=== PATIENT | female | born 1980 | race Caucasian/White ===

== ENCOUNTER 2016-08-23 10:38 | Day surgery (SDC) | payer BC ==
[~2016-08-23 10:38] MED LIST: Lactated Ringers 1,000 ML IV SCH; Sodium Chloride 0.9% 10 ML Syringe FLUSH PRN; Sodium Chloride 0.9% 2.5 ML Syringe FLUSH PRN
[2016-08-23] MEDS ORDERED: Lidocaine 2% 5 ML SDV ONE (11:06)
[2016-08-23] MEDS ORDERED: Propofol 200 MG/20 ML SDV ONE ×2 (11:07→11:57)
[2016-08-23] MEDS ORDERED: Midazolam 1 MG/ML 2 ML SDV ONE (11:07)
[2016-08-23] MEDS ORDERED: fentaNYL 100 MCG/2 ML SDV ONE (11:07)
--- NOTE | 2016-08-23 11:09 | PCM.PREANE ---
Preanesthetic Assessment - Anesthesia/Transfusion/Family Hx Anesthesia History: Prior Anesthesia Without Reaction Family History of Anesthesia Reaction: No Transfusion History: No Prior Transfusion(s) Intubation History: Unknown - Review of Systems General: No Symptoms Pulmonary: No Symptoms Cardiovascular: No Symptoms Gastrointestinal: Abdominal pain, Hematochezia Neurological: No Symptoms Other: Reports: None - Physical Assessment O2 Sat by Pulse Oximetry: 98 Respiratory Rate: 16 Vital Signs: Last Vital Signs Temp 36.1 C 08/23/16 10:44 Pulse 92 08/23/16 10:44 Resp 16 08/23/16 10:44 BP 110/85 08/23/16 10:44 Pulse Ox 98 08/23/16 10:44 Height: 1.64 m Weight: 64.864 kg ASA Class: 2 Mental Status: Alert & Oriented x3 Airway Class: Mallampati = 2 Dentition: Reports: Normal Dentition Thyro-Mental Finger Breadths: 3 Mouth Opening Finger Breadths: 2 ROM/Head Extension: Full Lungs: Clear to auscultation, Normal respiratory effort Cardiovascular: Regular Rate, Regular Rhythm - Allergies Allergies/Adverse Reactions: Allergies Allergy/AdvReac Type Severity Reaction Status Date / Time gluten Allergy Abdominal Verified 06/25/13 01:02 Pain frank Allergy Hives Uncoded 06/25/13 01:02 - Blood Blood Available: No - Anesthesia Plan Pre-Op Medication Ordered: None - Acknowledgements Anesthesia Type Planned: MAC Pt an Appropriate Candidate for the Planned Anesthesia: Yes Alternatives and Risks of Anesthesia Discussed w Pt/Guardian: Yes Pt/Guardian Understands and Agrees with Anesthesia Plan: Yes PreAnesthesia Questionnaire HEENT History: Reports: Allergic Rhinitis, Other (See Below) Other HEENT History: wears glasses/contacts Respiratory History: Reports: Asthma (h/o asthma as child) Gastrointestinal History: Reports: GERD, Other (See Below) Other Gastrointestinal History: hx gastric ulcer, h/o elevated LFT's, abdominal cramps, brbpr Genitourinary History: Reports: None 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: Musculoskeletal History: Reports: Arthritis (psoriatic) Neurological History: Reports: Other (See Below) (headaches) Psychiatric History: Reports: Anxiety, Depression Dermatologic History: Reports: Psoriasis (head) - Infectious Disease History Infectious Disease History: Reports: Chicken Pox - Past Surgical History Head Surgeries/Procedures: Reports: None HEENT Surgical History: Reports: Tonsillectomy GI Surgical History: Reports: EGD Female Surgical History: Reports: Breast Reduction - SUBSTANCE USE Smoking Status *Q: Never Smoker Second Hand Smoke Exposure: No Days Per Week of Alcohol Use: 1 Number of Drinks Per Day: 1 Total Drinks Per Week: 1 Recreational Drug Use History: No - HOME MEDS Home Medications: Home Meds Albuterol Sulfate [Proair Hfa] 1 - 2 puff INH ASDIRECTED PRN 08/21/16 [History] Omeprazole 40 mg PO DAILY 08/21/16 [History] Sucralfate 1 gm PO QID 08/21/16 [History] buPROPion HCl [Wellbutrin Xl] 150 mg PO DAILY 08/21/16 [History] - CURRENT (IN HOUSE) MEDS Current Meds: Current Medications Lactated Ringer's (Ringers, Lactated) 1,000 mls @ 125 mls/hr IV ASDIRECTED KELBY Last Admin: 08/23/16 10:48 Dose: 125 mls/hr Sodium Chloride (Saline Flush) 10 ml FLUSH ASDIRECTED PRN PRN Reason: Keep Vein Open Sodium Chloride (Saline Flush) 2.5 ml FLUSH ASDIRECTED PRN PRN Reason: Keep Vein Open
--- NOTE | 2016-08-23 12:23 | PCM.OPNOTE ---
- General Post-Op/Procedure Note Date of Surgery/Procedure: 08/23/16 Operative Procedure(s): EGD and colonoscopy Findings: Normal egd and colonoscopy Pre Op Diagnosis: BRBPR, epigastric pain Post-Op Diagnosis: same Anesthesia Technique: MAC Primary Surgeon: Ciara Barksdale Condition: Good
--- NOTE | 2016-08-23 12:28 | PCM.POSTAN ---
POST ANESTHESIA ASSESSMENT - MENTAL STATUS Mental Status: alert - RESPIRATORY Respiratory Status: respiratory rate WNL, airway patent, O2 saturation stable - CARDIOVASCULAR CV Status: pulse rate WNL, blood pressure stable - GASTROINTESTINAL GI Status: no symptoms - POST OP HYDRATION Hydration Status: adequate & stable - OBSERVATIONS Free Text/Narrative:: no anesthesiqa problems
[2016-08-23 12:49] VITALS: BP 125/89
--- NOTE | 2016-08-24 02:48 | OR ---
SURGEON: CHIQUITA MEDINA MD DATE OF PROCEDURE: 08/23/2016 PREOPERATIVE DIAGNOSIS: Bright red bleeding per rectum, epigastric pain. POSTOPERATIVE DIAGNOSIS: Bright red bleeding per rectum, epigastric pain. PROCEDURE PERFORMED: Diagnostic EGD and colonoscopy. INSTRUMENT USED: Olympus endoscope and colonoscope. ANESTHESIA: MAC. EXTENT OF EXAM: To the second portion of duodenum and to the cecum. PREPARATION: Good. LIMITATIONS: None. 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 She was recently on prednisone and NSAIDs and developed sharp epigastric pain. She also had several bloody appearing bowel movements. The patient stopped all of her pain medications as well as steroids. Since then, her symptoms have resolved; however, her arthritis symptoms have worsened. Decision was made to perform a diagnostic EGD and colonoscopy. We discussed the procedures as well as risks including bleeding, infection, or damage to surrounding structures including perforation. The patient verbalized understanding and wishes to proceed. PROCEDURE IN DETAIL: The patient was brought to the endoscopy suite and placed in a beach chair position. A time-out was completed verifying the patient's name, age, date of , allergies, and procedure to be performed. A bite block was placed in the patient's mouth and monitored anesthesia care was induced. Continuous oxygen was provided via nasal cannula. A well lubricated endoscope was placed in the patient's mouth and advanced under direct visualization to the second portion of duodenum. This appeared normal and a photograph was taken. The scope was then pulled back. The duodenal bulb appeared normal. The scope was brought in the stomach. A photograph was taken of the pylorus as well as the esophageal hiatus and both appeared normal. The gastric mucosa had no evidence of ulceration or inflammation. There were no stigmata of bleeding. Biopsies were taken of the gastric antrum, body, and fundus and sent for pathologic testing and H pylori. The scope was brought into the esophagus and photograph was taken of the GE junction which appeared normal. The remainder of the esophagus was without pathology. The scope was removed from the patient and this portion of the procedure terminated. The patient was placed in left lateral decubitus position and a digital rectal exam was performed. This exam was within normal limits. A well lubricated colonoscope was inserted in the rectum and advanced under direct visualization to the level of cecum. The cecum was then identified by both visual and anatomic landmarks. A photograph was taken of the cecal cap as well as with the scope retroflexed within the cecum. The scope was then fully withdrawn while examining the color, texture, anatomy, and integrity mucosa from the cecum to the anal canal. The findings were consistent with normal colonic mucosa. The scope was brought into the rectum and retroflexed to allow visualization of the anal canal opening. This appeared normal. Photograph was taken. The scope was then straightened out and removed from the patient. The cecum to anus time was 10 minutes. The patient was transferred to the recovery room in stable condition. ENDOSCOPIC DIAGNOSIS: Normal colonoscopy and upper endoscopy. RECOMMENDATION: Follow up with primary care provider. Continue to take Protonix for approximately 2 months after initial onset of epigastric pain. The patient will require another colonoscopy at the age of 52. DENISE SUÁREZ /[id number]
== END 2016-08-23 13:11 | disposition home or self-care (01) ==
LOC: MW.SDS 10:38
PROVIDERS: ATTEND Surgery
PROC: 0DB68ZX Excision of Stomach, Via Natural or Artificial Opening Endoscopic, Diagnostic (ICD-10-PCS; principal; 2016-08-23)
PROC: 0DJD8ZZ Inspection of Lower Intestinal Tract, Via Natural or Artificial Opening Endoscopic (ICD-10-PCS; 2016-08-23)
DX: K62.5 Hemorrhage of anus and rectum (principal); F41.9 Anxiety disorder, unspecified; F32.9 Major depressive disorder, single episode, unspecified; M19.90 Unspecified osteoarthritis, unspecified site; J45.909 Unspecified asthma, uncomplicated; K21.9 Gastro-esophageal reflux disease without esophagitis; Z79.899 Other long term (current) drug therapy; Z98.890 Other specified postprocedural states; Z90.89 Acquired absence of other organs; Z91.048 Other nonmedicinal substance allergy status
CPT/HCPCS: 43239; 45378; 81025; 88305; 88312; J2250; J3010; J7120; 00740; J2704

== ENCOUNTER 2018-07-20 21:34 | Emergency (ER) | payer BC ==
[2018-07-20 21:51] VITALS: BP 135/83
[2018-07-20] MEDS ORDERED: Sodium Chloride 0.9% 10 ML Syringe FLUSH PRN (21:56)
[2018-07-20] MEDS ORDERED: Sodium Chloride 0.9% 2.5 ML Syringe FLUSH PRN (21:56)
--- NOTE | 2018-07-20 22:03 | EDM.PDOC ---
ED HPI GENERAL MEDICAL PROBLEM - General Chief Complaint: Headache Stated Complaint: BLURRED VISION Time Seen by Provider: 07/20/18 21:47 - History of Present Illness INITIAL COMMENTS - FREE TEXT/NARRATIVE: HISTORY AND PHYSICAL: History of present illness: The patient is a 38-year-old female who is a 3 para [address] Cantu at [facility] and is due in August and presents with complaints of some visual changes and a headache that started last evening. The patient says that she has no history of headaches or migraines but her mother does get migraine headaches and she has had issues with prior pregnancies with headaches and visual issues. She says that at 10 PM last evening she had a short episode where she thought that her peripheral vision was blurry but left was greater than right and then it resolved and then she had a slight dull headache over her left eyebrow. She took Tylenol and went to sleep and woke up this morning and felt completely normal. She had a normal day until about 1 PM she had another episode of blurriness in her peripheral vision but this time it was both eyes and that lasted about an hour and she developed a headache which was more diffuse across her forehead and then she took Tylenol and took a nap. When she woke up she said that the headache felt worse but it was right greater than left at this time and she felt very stuffy but she has felt stuffy throughout the entire . She took another dose of Tylenol at 8 PM and her headache has resolved. She no longer has any visual issues or headaches. The patient tells me that yesterday she did pass something that looked like part of her mucous plug and she had some pinkish clear discharge 2 times on the toilet paper yesterday but that has since improved. She has no abdominal cramping or pain no vaginal bleeding no urinary complaints no neck or back pain and no fevers. She says she is very constipated and has not had a bowel movement for 5 days and she feels that she doesn't have much of an appetite because of that and she has not been eating her normal amount. She says that she 's not sure if not eating usual amounts has affected her and cause these headaches. She has no sore throat or earache no gross neck or sinus pain and no other systemic complaints. The patient tells me her blood pressure usually runs 115-120 systolically and it is a little bit high here. The only reason why she came in to be evaluated is because she was concerned about preeclampsia. She has no leg pain or swelling Review of systems: As per history of present illness and below otherwise all systems reviewed and negative. Past medical history: As per history of present illness and as reviewed below otherwise noncontributory. Surgical history: As per history of present illness and as reviewed below otherwise noncontributory. Social history: No reported history of drug or alcohol abuse. Family history: As per history of present illness and as reviewed below otherwise noncontributory. Physical exam: General: Well-developed well-nourished female who is nontoxic and vital signs are noted by me. She moves easily in the ED without distress and moves her head about without any distress or nuchal rigidity HEENT: Atraumatic, normocephalic, pupils reactive, negative for conjunctival pallor or scleral icterus, mucous membranes moist, throat clear, neck supple, nontender, trachea midline. Is no cervical adenopathy TMs are normal bilaterally and there is no gross sinus tenderness on palpation nor can I reproduce the pain when I palpate her scalp or head Lungs: Clear to auscultation, breath sounds equal bilaterally, chest nontender. Heart: S1S2, regular rate and rhythm no overt murmurs Abdomen: Soft, nondistended, nontender. Gravid uterus Negative for masses or hepatosplenomegaly. Negative for costovertebral tenderness. Pelvis: Stable nontender. Genitourinary: Deferred. Rectal: Deferred. Extremities: Atraumatic, negative for cords or calf pain. Neurovascular unremarkable. No pedal edema or leg asymmetry Neuro: Awake, alert, oriented. Cranial nerves II through XII unremarkable. Cerebellum unremarkable. Motor and sensory unremarkable throughout. Exam nonfocal. Diagnostics: Labor and delivery was called to come down and evaluate the patient from a standpoint, visual acuity, CBC CMP uric acid PT PTT UA with reflex CT scan of the head Therapeutics: Patient here has never had any visual changes nor a headache. Labor and delivery has cleared the baby and everything is on target. Patient's visual acuity was 20/20 in each eye and together. The patient was mostly concerned about preeclamptic symptoms and is aware of all testing results. I will discuss this case with ophthalmology as well as her provider. 2332: Discussed with Dr. Goode this case and he does not feel that any further evaluation as needed and he thinks that the visual changes associated with the headache are likely a migraine equivalent 2338: Discussed this case with Dr. Rodriguez who is aware of all of the workup and the findings and wants the patient to call the clinic in the morning. Impression: Episodic visual changes and headache, third trimester stable Definitive disposition and diagnosis as appropriate pending reevaluation and review of above. 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 - Related Data Allergies Allergy/AdvReac Type Severity Reaction Status Date / Time gluten Allergy Abdominal Verified 06/25/13 01:02 Pain frank Allergy Hives Uncoded 06/25/13 01:02 Home Meds: Home Meds Albuterol Sulfate [Proair Hfa] 1 - 2 puff INH ASDIRECTED PRN 08/21/16 [History] Omeprazole 40 mg PO DAILY 08/21/16 [History] Sucralfate 1 gm PO QID 08/21/16 [History] buPROPion HCl [Wellbutrin Xl] 150 mg PO DAILY 08/21/16 [History] Past Medical History HEENT History: Reports: Allergic Rhinitis, Other (See Below) Other HEENT History: wears glasses/contacts Respiratory History: Reports: Asthma (h/o asthma as child) Gastrointestinal History: Reports: GERD, Other (See Below) Other Gastrointestinal History: hx gastric ulcer, h/o elevated LFT's, abdominal cramps, brbpr Genitourinary History: Reports: None 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: Musculoskeletal History: Reports: Arthritis (psoriatic) Neurological History: Reports: Other (See Below) (headaches) Psychiatric History: Reports: Anxiety, Depression Dermatologic History: Reports: Psoriasis (head) - Infectious Disease History Infectious Disease History: Reports: Chicken Pox - Past Surgical History Head Surgeries/Procedures: Reports: None HEENT Surgical History: Reports: Tonsillectomy GI Surgical History: Reports: EGD Female Surgical History: Reports: Breast Reduction Social & Family History - Family History Family Medical History: Noncontributory - Caffeine Use Caffeine Use: Reports: Coffee Other Caffeine Use: daily ED ROS GENERAL - Review of Systems Review Of Systems: ROS reveals no pertinent complaints other than HPI. ED EXAM, GENERAL - Physical Exam Exam: See Below (See dictation) Course - Vital Signs Last Recorded V/S: Last Vital Signs Temp 36.4 C 07/20/18 21:45 Pulse 110 H 07/20/18 21:45 Resp 18 07/20/18 21:45 BP 135/83 07/20/18 21:45 Pulse Ox 95 07/20/18 21:45 - Orders/Labs/Meds Orders: Active Orders 24 hr Category Date Time Status Communication Order [RC] STAT Care 07/20/18 21:56 Active CULTURE URINE [RM] Stat Lab 07/20/18 22:10 Received Sodium Chloride 0.9% [Saline Flush] Med 07/20/18 21:56 Active 10 ml FLUSH ASDIRECTED PRN Sodium Chloride 0.9% [Saline Flush] Med 07/20/18 21:56 Active 2.5 ml FLUSH ASDIRECTED PRN Saline Lock Insert [OM.PC] Stat Oth 07/20/18 21:56 Ordered Medication Orders Sodium Chloride (Saline Flush) 10 ml FLUSH ASDIRECTED PRN PRN Reason: Keep Vein Open Sodium Chloride (Saline Flush) 2.5 ml FLUSH ASDIRECTED PRN PRN Reason: Keep Vein Open Labs: Laboratory Tests 07/20/18 07/20/18 07/20/18 Range/Units 22:10 22:28 22:28 WBC 12.52 H (4.0-11.0) K/uL RBC 3.98 L (4.30-5.90) M/uL Hgb 11.6 L (12.0-16.0) g/dL Hct 34.0 L (36.0-46.0) % MCV 85.4 (80.0-98.0) fL MCH 29.1 (27.0-32.0) pg MCHC 34.1 (31.0-37.0) g/dL RDW Std Deviation 40.6 (28.0-62.0) fl RDW Coeff of Rhianna 13 (11.0-15.0) % Plt Count 225 (150-400) K/uL MPV 10.20 (7.40-12.00) fL Neut % (Auto) 68.5 (48.0-80.0) % Lymph % (Auto) 22.8 (16.0-40.0) % Phillips % (Auto) 5.8 (0.0-15.0) % Eos % (Auto) 2.6 (0.0-7.0) % Baso % (Auto) 0.3 (0.0-1.5) % Neut # (Auto) 8.6 H (1.4-5.7) K/uL Lymph # (Auto) 2.9 H (0.6-2.4) K/uL Phillips # (Auto) 0.7 (0.0-0.8) K/uL Eos # (Auto) 0.3 (0.0-0.7) K/uL Baso # (Auto) 0.0 (0.0-0.1) K/uL Nucleated RBC % 0.0 /100WBC Nucleated RBCs # 0 K/uL INR 0.93 APTT 25.3 (18.6-31.3) SEC Sodium (136-145) mmol/L Potassium (3.5-5.1) mmol/L Chloride (98-107) mmol/L Carbon Dioxide (21.0-32.0) mmol/L BUN (7.0-18.0) mg/dL Creatinine (0.6-1.0) mg/dL Est Cr Clr Drug Dosing mL/min Estimated GFR (MDRD) ml/min Glucose (74-106) mg/dL Uric Acid (2.6-7.2) mg/dL Calcium (8.5-10.1) mg/dL Total Bilirubin (0.2-1.0) mg/dL AST (15-37) IU/L ALT (14-63) IU/L Alkaline Phosphatase (46-116) U/L Total Protein (6.4-8.2) g/dL Albumin (3.4-5.0) g/dL Globulin (2.6-4.0) g/dL Albumin/Globulin Ratio (0.9-1.6) Urine Color YELLOW Urine Appearance HAZY Urine pH 6.0 (5.0-8.0) Ur Specific [place] 1.010 (1.001-1.035) Urine Protein NEGATIVE (NEGATIVE) mg/dL Urine Glucose (UA) NEGATIVE (NEGATIVE) mg/dL Urine Ketones NEGATIVE (NEGATIVE) mg/dL Urine Occult Blood NEGATIVE (NEGATIVE) Urine Nitrite NEGATIVE (NEGATIVE) Urine Bilirubin NEGATIVE (NEGATIVE) Urine Urobilinogen 0.2 (<2.0) EU/dL Ur Leukocyte Esterase SMALL H (NEGATIVE) Urine RBC 1-2 (0-2/HPF) Urine WBC 1-3 (0-5/HPF) Ur Epithelial Cells FEW (NONE-FEW) Urine Bacteria FEW (NEGATIVE) 07/20/18 Range/Units 22:28 WBC (4.0-11.0) K/uL RBC (4.30-5.90) M/uL Hgb (12.0-16.0) g/dL Hct (36.0-46.0) % MCV (80.0-98.0) fL MCH (27.0-32.0) pg MCHC (31.0-37.0) g/dL RDW Std Deviation (28.0-62.0) fl RDW Coeff of Rhianna (11.0-15.0) % Plt Count (150-400) K/uL MPV (7.40-12.00) fL Neut % (Auto) (48.0-80.0) % Lymph % (Auto) (16.0-40.0) % Phillips % (Auto) (0.0-15.0) % Eos % (Auto) (0.0-7.0) % Baso % (Auto) (0.0-1.5) % Neut # (Auto) (1.4-5.7) K/uL Lymph # (Auto) (0.6-2.4) K/uL Phillips # (Auto) (0.0-0.8) K/uL Eos # (Auto) (0.0-0.7) K/uL Baso # (Auto) (0.0-0.1) K/uL Nucleated RBC % /100WBC Nucleated RBCs # K/uL INR APTT (18.6-31.3) SEC Sodium 139 (136-145) mmol/L Potassium 3.7 (3.5-5.1) mmol/L Chloride 104 (98-107) mmol/L Carbon Dioxide 23.8 (21.0-32.0) mmol/L BUN 9 (7.0-18.0) mg/dL Creatinine 0.8 (0.6-1.0) mg/dL Est Cr Clr Drug Dosing 83.95 mL/min Estimated GFR (MDRD) > 60.0 ml/min Glucose 107 H (74-106) mg/dL Uric Acid 5.6 (2.6-7.2) mg/dL Calcium 8.8 (8.5-10.1) mg/dL Total Bilirubin 0.6 (0.2-1.0) mg/dL AST 18 (15-37) IU/L ALT 13 L (14-63) IU/L Alkaline Phosphatase 106 (46-116) U/L Total Protein 7.0 (6.4-8.2) g/dL Albumin 2.8 L (3.4-5.0) g/dL Globulin 4.2 H (2.6-4.0) g/dL Albumin/Globulin Ratio 0.7 L (0.9-1.6) Urine Color Urine Appearance Urine pH (5.0-8.0) Ur Specific [place] (1.001-1.035) Urine Protein (NEGATIVE) mg/dL Urine Glucose (UA) (NEGATIVE) mg/dL Urine Ketones (NEGATIVE) mg/dL Urine Occult Blood (NEGATIVE) Urine Nitrite (NEGATIVE) Urine Bilirubin (NEGATIVE) Urine Urobilinogen (<2.0) EU/dL Ur Leukocyte Esterase (NEGATIVE) Urine RBC (0-2/HPF) Urine WBC (0-5/HPF) Ur Epithelial Cells (NONE-FEW) Urine Bacteria (NEGATIVE) Meds: Medications Generic Name Dose Route Start Last Admin Trade Name Freq PRN Reason Stop Dose Admin Sodium Chloride 10 ml 07/20/18 21:56 Saline Flush FLUSH ASDIRECTED PRN Keep Vein Open Sodium Chloride 2.5 ml 07/20/18 21:56 Saline Flush FLUSH ASDIRECTED PRN Keep Vein Open Departure - Departure Time of Disposition: 23:43 Disposition: Home, Self-Care 01 Condition: Good Clinical Impression: Third trimester Headache Qualifiers: Headache type: unspecified Intractability: not intractable - Discharge Information Referrals: PCP,None [Primary Care Provider] - Forms: ED Department Discharge Additional Instructions: The following information is given to patients seen in the emergency department who are being discharged to home. This information is to outline your options for follow-up care. We provide all patients seen in our emergency department with a follow-up referral. The need for follow-up, as well as the timing and circumstances, are variable depending upon the specifics of your emergency department visit. If you don't have a primary care physician on staff, we will provide you with a referral. We always advise you to contact your personal physician following an emergency department visit to inform them of the circumstance of the visit and for follow-up with them and/or the need for any referrals to a consulting specialist. The emergency department will also refer you to a specialist when appropriate. This referral assures that you have the opportunity for followup care with a specialist. All of these measure are taken in an effort to provide you with optimal care, which includes your followup. Under all circumstances we always encourage you to contact your private physician who remains a resource for coordinating your care. When calling for followup care, please make the office aware that this follow-up is from your recent emergency room visit. If for any reason you are refused follow-up, please contact the [facility] emergency department at and ask to speak to the emergency department charge nurse. [address] [id number] Please contact the clinic first thing in the morning to discuss with them your follow-up care and return to ER as needed and as discussed. - My Orders Last 24 Hours: My Active Orders 07/20/18 21:56 Communication Order [RC] STAT Sodium Chloride 0.9% [Saline Flush] 10 ml FLUSH ASDIRECTED PRN Sodium Chloride 0.9% [Saline Flush] 2.5 ml FLUSH ASDIRECTED PRN Saline Lock Insert [OM.PC] Stat 07/20/18 22:10 CULTURE URINE [RM] Stat - Assessment/Plan Last 24 Hours: My Active Orders 07/20/18 21:56 Communication Order [RC] STAT Sodium Chloride 0.9% [Saline Flush] 10 ml FLUSH ASDIRECTED PRN Sodium Chloride 0.9% [Saline Flush] 2.5 ml FLUSH ASDIRECTED PRN Saline Lock Insert [OM.PC] Stat 07/20/18 22:10 CULTURE URINE [RM] Stat
--- NOTE | 2018-07-20 22:29 | CT ---
HISTORY: Headache, blurry vision. TECHNIQUE: Noncontrast head CT. COMPARISON: No prior. FINDINGS: There is no acute intracranial hemorrhage or acute ischemic infarct. No mass effect or midline shift. No hydrocephalus. No extra-axial collection or hematoma. No acute loss of douglass-white differentiation. The mastoid air cells are clear. Paranasal sinuses are clear. No acute skull fracture. IMPRESSION: No acute intracranial disease. Dictated by Danny Dillon MD @ 07/20/2018 10:27:01 PM Please note that all CT scans at this facility use dose modulation, iterative reconstruction, and/or weight-based dosing when appropriate to reduce radiation dose to as low as reasonably achievable. Dictated by: Danny Dillon MD @ 07/20/2018 22:27:04 (Electronically Signed)
[2018-07-20 22:53] LABS: CHLORIDE,CL 104 mmol/L (98-107); SODIUM,NA 139 mmol/L (136-145)
== END 2018-07-20 23:58 | disposition home or self-care (01) ==
LOC: MW.ED 21:34
DX: O99.89 Other specified diseases and conditions complicating pregnancy, childbirth and the puerperium (principal); H53.149 Visual discomfort, unspecified; R51 Headache; O99.513 Diseases of the respiratory system complicating pregnancy, third trimester; J45.909 Unspecified asthma, uncomplicated; Z79.899 Other long term (current) drug therapy; Z91.018 Allergy to other foods
CPT/HCPCS: 36415; 59025; 70450; 70450-26; 80053; 81001; 84550; 85025; 85610; 85730; 87086; 99284-25

== ENCOUNTER 2018-08-26 11:31 | Inpatient (IN) | payer BC ==
[2018-08-26] MEDS ORDERED: Terbutaline 1 MG/ML SDV SUBCUT PRN (12:00)
[2018-08-26] MEDS ORDERED: Nalbuphine 10 MG/1 ML Vial IVPUSH PRN (12:00)
[2018-08-26] MEDS ORDERED: Misoprostol 200 MCG Tab PO PRN (12:00)
[2018-08-26] MEDS ORDERED: Sodium Chloride 0.9% 10 ML SDV IV PRN (12:00)
[2018-08-26] MEDS ORDERED: Methylergonovine 0.2 MG/1 ML Amp IM PRN (12:00)
[2018-08-26] MEDS ORDERED: Carboprost Tromethamine 250 MCG/1 ML Amp IM PRN (12:00)
[2018-08-26] MEDS ORDERED: Lidocaine 1% 50 ML MDV INJECT PRN (12:00)
[2018-08-26] MEDS ORDERED: Sodium Chloride 0.9% 10 ML Syringe FLUSH PRN (12:00)
[2018-08-26] MEDS ORDERED: Tranexamic Acid 1,000 MG in Sodium Chloride 0.9% 100 ML IV PRN (12:00)
[2018-08-26] MEDS ORDERED: Oxytocin/0.9 % Sodium Chloride 30 UNIT/500 ML BAG IV SCH ×2 (12:00)
[2018-08-26] MEDS ORDERED: Sodium Chloride 0.9% 2.5 ML Syringe FLUSH PRN (12:00)
[2018-08-26] MEDS ORDERED: Butorphanol 1 MG/ML SDV IVPUSH PRN (12:00)
[2018-08-26] MEDS ORDERED: Water For Irrigation,Sterile 1,000 ML Container IRR PRN (12:00)
[2018-08-26] MEDS: Lactated Ringers 1,000 ML IV SCH ×3 (12:21→14:48)
--- NOTE | 2018-08-26 13:40 | PCM.PREANE ---
Preanesthetic Assessment - Procedure Proposed Procedure: lABOR EPIDURAL - Anesthesia/Transfusion/Family Hx Anesthesia History: Prior Anesthesia Without Reaction Transfusion History: No Prior Transfusion(s) Intubation History: Unknown - Review of Systems General: No Symptoms Pulmonary: Cough (mild cold) Cardiovascular: No Symptoms Gastrointestinal: No Symptoms Neurological: No Symptoms Other: Reports: None - Physical Assessment NPO Status Date: 08/26/18 NPO Status Time: 13:55 Pulse: 107 O2 Sat by Pulse Oximetry: 100 Respiratory Rate: 18 Blood Pressure: 137/83 Height: 1.65 m Weight: 76.204 kg ASA Class: 2 Mental Status: Alert & Oriented x3 Airway Class: Mallampati = 2 Dentition: Reports: Normal Dentition Thyro-Mental Finger Breadths: 3 Mouth Opening Finger Breadths: 3 ROM/Head Extension: Full Lungs: Clear to Auscultation, Normal Respiratory Effort Cardiovascular: Regular Rate, Regular Rhythm - Lab Values: Laboratory Last Values WBC 12.38 K/uL (4.0-11.0) H 08/26/18 12:21 RBC 4.06 M/uL (4.30-5.90) L 08/26/18 12:21 Hgb 11.1 g/dL (12.0-16.0) L 08/26/18 12:21 Hct 33.5 % (36.0-46.0) L 08/26/18 12:21 MCV 82.5 fL (80.0-98.0) 08/26/18 12:21 MCH 27.3 pg (27.0-32.0) 08/26/18 12:21 MCHC 33.1 g/dL (31.0-37.0) 08/26/18 12:21 RDW Std Deviation 39.4 fl (28.0-62.0) 08/26/18 12:21 RDW Coeff of Rhianna 13 % (11.0-15.0) 08/26/18 12:21 Plt Count 214 K/uL (150-400) 08/26/18 12:21 MPV 10.70 fL (7.40-12.00) 08/26/18 12:21 Nucleated RBC % 0.0 /100WBC 08/26/18 12:21 Nucleated RBCs # 0 K/uL 08/26/18 12:21 Blood Type O POSITIVE 06/18/19 12:21 Antibody Screen NEGATIVE 08/26/18 12:21 - Allergies Allergies/Adverse Reactions: Allergies Allergy/AdvReac Type Severity Reaction Status Date / Time gluten Allergy Abdominal Verified 08/26/18 11:58 Pain frank Allergy Hives Uncoded 07/21/18 03:48 - Acknowledgements Anesthesia Type Planned: Epidural (risks and benefits of epidural discussed the patient understands and agrees to proceed. Consent signed. ) Pt an Appropriate Candidate for the Planned Anesthesia: Yes Alternatives and Risks of Anesthesia Discussed w Pt/Guardian: Yes Pt/Guardian Understands and Agrees with Anesthesia Plan: Yes PreAnesthesia Questionnaire HEENT History: Reports: Allergic Rhinitis, Other (See Below) Other HEENT History: wears glasses/contacts Cardiovascular History: Reports: None Respiratory History: Reports: Asthma (h/o asthma as child, last used inhaler winter 2018) Gastrointestinal History: Reports: GERD, Other (See Below) Other Gastrointestinal History: hx gastric ulcer, h/o elevated LFT's, abdominal cramps, brbpr Genitourinary History: Reports: None 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: Musculoskeletal History: Reports: Arthritis (psoriatic) Neurological History: Reports: Other (See Below) (headaches) Psychiatric History: Reports: Anxiety, Depression Endocrine/Metabolic History: Reports: None Hematologic History: Reports: None Dermatologic History: Reports: Psoriasis (head) - Infectious Disease History Infectious Disease History: Reports: Chicken Pox - Past Surgical History Head Surgeries/Procedures: Reports: None HEENT Surgical History: Reports: Tonsillectomy GI Surgical History: Reports: EGD Female Surgical History: Reports: Breast Reduction - HOME MEDS Home Medications: Home Meds Albuterol Sulfate [Proair Hfa] 1 - 2 puff INH ASDIRECTED PRN 08/21/16 [History] #103/Iron Fumarate/Fa [ ] 1 tab PO DAILY 07/21/18 [ History] - CURRENT (IN HOUSE) MEDS Current Meds: Current Medications Butorphanol Tartrate (Stadol) 1 mg IVPUSH Q1H PRN PRN Reason: Pain Carboprost Tromethamine (Hemabate Ds) 250 mcg IM ASDIRECTED PRN PRN Reason: Post Hemorrhage Lactated Ringer's (Ringers, Lactated) 1,000 mls @ 150 mls/hr IV ASDIRECTED KELBY Last Admin: 08/26/18 13:34 Dose: 150 mls/hr Oxytocin/Sodium Chloride (Oxytocin 30 Unit/500 Ml-Ns) 30 unit in 500 mls @ 2 mls/hr IV TITRATE KELBY; Protocol Last Titration: 08/26/18 12:49 Dose: 4 munits/min, 4 mls/hr Oxytocin/Sodium Chloride (Oxytocin 30 Unit/500 Ml-Ns) 30 unit in 500 mls @ 500 mls/hr IV TITRATE KELBY Tranexamic Acid 1,000 mg/ (Sodium Chloride) 110 mls @ 660 mls/hr IV ONETIME PRN PRN Reason: Bleeding Lidocaine HCl (Xylocaine 1%) 50 ml INJECT ONETIME PRN PRN Reason: Laceration repair Methylergonovine Maleate (Methergine) 0.2 mg IM ASDIRECTED PRN PRN Reason: Post Hemorrhage Misoprostol (Cytotec) 200 mcg PO ONETIME PRN PRN Reason: Post Hemorrhage Nalbuphine HCl (Nubain) 10 mg IVPUSH Q1H PRN PRN Reason: Pain (severe 7-10) Sodium Chloride (Saline Flush) 10 ml FLUSH ASDIRECTED PRN PRN Reason: Keep Vein Open Sodium Chloride (Saline Flush) 2.5 ml FLUSH ASDIRECTED PRN PRN Reason: Keep Vein Open Sodium Chloride (Normal Saline) 10 ml IV ASDIRECTED PRN PRN Reason: IV Use Sterile Water (Sterile Water For Irrigation) 1,000 ml IRR ASDIRECTED PRN PRN Reason: delivery Terbutaline Sulfate (Brethine) 0.25 mg SUBCUT ASDIRECTED PRN PRN Reason: Tacysystole
[2018-08-26] MEDS ORDERED: Ropivacaine HCl/PF 100 ML ONE (13:47)
[2018-08-26] MEDS ORDERED: Lidocaine HCl/EPINEPHrine 5 ML IJ ONE (13:47)
[2018-08-26] MEDS ORDERED: Citric Acid/Sodium Citrate Solution 30 ML Cup PO ONE (18:00)
--- NOTE | 2018-08-26 19:33 | PCM.DEL ---
L & D Note - General Info Date of Service: 08/26/18 Mother's Due Date: 08/30/18 - Delivery Note Labor: Induced by ARM, Induced by Oxytocin Delivery Outcome: Livebirth Infant Delivery Method: Spontaneous Vaginal Delivery-Single Presentation: Left Occiput Anterior (DONATO) Nuchal Cord: Reduced Prep: Other Anesthesia Type: Epidural Amniotic Fluid Description: Clear Episiotomy Type: None Laceration: 2nd Degree Suture type: Vicryl Suture size: 3-0 Placenta: Intact, Spontaneous Cord: 3 Vessels Resuscitation Needed: No [place]: Suctioned Score 1 min: 8 Score 5 min: 9 Delivery Comments (Free Text/Narrative):: Liveborn female weight pending - General Info Date of Service: 08/26/18 - Patient Data Vitals - Most Recent: Last Vital Signs Temp Pulse 107 H 08/26/18 14:57 Resp 18 08/26/18 14:57 BP 137/83 08/26/18 14:57 Pulse Ox 100 08/26/18 14:57 Weight - Most Recent: 76.204 kg Lab Results Last 24 Hours: Laboratory Results - last 24 hr 08/26/18 08/26/18 Range/Units 12:21 12:21 WBC 12.38 H (4.0-11.0) K/uL RBC 4.06 L (4.30-5.90) M/uL Hgb 11.1 L (12.0-16.0) g/dL Hct 33.5 L (36.0-46.0) % MCV 82.5 (80.0-98.0) fL MCH 27.3 (27.0-32.0) pg MCHC 33.1 (31.0-37.0) g/dL RDW Std Deviation 39.4 (28.0-62.0) fl RDW Coeff of Rhianna 13 (11.0-15.0) % Plt Count 214 (150-400) K/uL MPV 10.70 (7.40-12.00) fL Nucleated RBC % 0.0 /100WBC Nucleated RBCs # 0 K/uL Blood Type O POSITIVE Antibody Screen NEGATIVE Med Orders - Current: Current Medications Butorphanol Tartrate (Stadol) 1 mg IVPUSH Q1H PRN PRN Reason: Pain Carboprost Tromethamine (Hemabate Ds) 250 mcg IM ASDIRECTED PRN PRN Reason: Post Hemorrhage Lactated Ringer's (Ringers, Lactated) 1,000 mls @ 150 mls/hr IV ASDIRECTED KELBY Last Admin: 08/26/18 14:48 Dose: 150 mls/hr Oxytocin/Sodium Chloride (Oxytocin 30 Unit/500 Ml-Ns) 30 unit in 500 mls @ 2 mls/hr IV TITRATE KELBY; Protocol Last Titration: 08/26/18 18:00 Dose: 18 munits/min, 18 mls/hr Oxytocin/Sodium Chloride (Oxytocin 30 Unit/500 Ml-Ns) 30 unit in 500 mls @ 500 mls/hr IV TITRATE KELBY Tranexamic Acid 1,000 mg/ (Sodium Chloride) 110 mls @ 660 mls/hr IV ONETIME PRN PRN Reason: Bleeding Lidocaine HCl (Xylocaine 1%) 50 ml INJECT ONETIME PRN PRN Reason: Laceration repair Methylergonovine Maleate (Methergine) 0.2 mg IM ASDIRECTED PRN PRN Reason: Post Hemorrhage Misoprostol (Cytotec) 200 mcg PO ONETIME PRN PRN Reason: Post Hemorrhage Nalbuphine HCl (Nubain) 10 mg IVPUSH Q1H PRN PRN Reason: Pain (severe 7-10) Sodium Chloride (Saline Flush) 10 ml FLUSH ASDIRECTED PRN PRN Reason: Keep Vein Open Sodium Chloride (Saline Flush) 2.5 ml FLUSH ASDIRECTED PRN PRN Reason: Keep Vein Open Sodium Chloride (Normal Saline) 10 ml IV ASDIRECTED PRN PRN Reason: IV Use Sterile Water (Sterile Water For Irrigation) 1,000 ml IRR ASDIRECTED PRN PRN Reason: delivery Last Admin: 08/26/18 19:24 Dose: 1,000 ml Terbutaline Sulfate (Brethine) 0.25 mg SUBCUT ASDIRECTED PRN PRN Reason: Tacysystole Discontinued Medications Citric Acid/Sodium Citrate (Bicitra Solution) 30 ml PO ONETIME ONE Stop: 08/26/18 18:01 Last Admin: 08/26/18 18:47 Dose: 30 ml Ropivacaine (Naropin 0.2%) Confirm Administered Dose 100 mls @ as directed .ROUTE .STK-MED ONE Stop: 08/26/18 13:48 Lidocaine/Epinephrine (Lidocaine 1.5%-Epi 1:200,000) Confirm Administered Dose 5 ml IJ .Source4Style-MED ONE Stop: 08/26/18 13:48 - Problem List & Annotations (1) Vaginal delivery SNOMED Code(s): 733051874 Code(s): O80 - ENCOUNTER FOR FULL-TERM UNCOMPLICATED DELIVERY Status: Acute Current Visit: No - Problem List Review Problem List Initiated/Reviewed/Updated: Yes - My Orders Last 24 Hours: My Active Orders 08/26/18 12:00 Patient Status [ADT] Routine Patient Status [ADT] Routine Bedrest Bathroom Privileges [RC] ASDIRECTED Communication Order [RC] ASDIRECTED Communication Order [RC] ASDIRECTED May Shower [RC] ASDIRECTED Notify Provider [RC] PRN Notify Provider [RC] STAT Oxygen Therapy [RC] ASDIRECTED Up ad Liliam [RC] ASDIRECTED Vital Signs [RC] PER UNIT ROUTINE Vital Signs [RC] PER UNIT ROUTINE Butorphanol [Stadol] 1 mg IVPUSH Q1H PRN Carboprost Tromethamine [Hemabate DS] 250 mcg IM ASDIRECTED PRN Lactated Ringers [Ringers, Lactated] 1,000 ml IV ASDIRECTED Lidocaine 1% [Xylocaine 1%] 50 ml INJECT ONETIME PRN Methylergonovine [Methergine] 0.2 mg IM ASDIRECTED PRN Nalbuphine [Nubain] 10 mg IVPUSH Q1H PRN Oxytocin/0.9 % Sodium Chloride [Oxytocin 30 Unit/500 ML-NS] 30 unit in 500 ml IV TITRATE Oxytocin/0.9 % Sodium Chloride [Oxytocin 30 Unit/500 ML-NS] 30 unit in 500 ml IV TITRATE Sodium Chloride 0.9% [Normal Saline] 10 ml IV ASDIRECTED PRN Sodium Chloride 0.9% [Saline Flush] 10 ml FLUSH ASDIRECTED PRN Sodium Chloride 0.9% [Saline Flush] 2.5 ml FLUSH ASDIRECTED PRN Terbutaline [Brethine] 0.25 mg SUBCUT ASDIRECTED PRN Tranexamic Acid [Cyklokapron] 1,000 mg Sodium Chloride 0.9% [Normal Saline] 100 ml IV ONETIME Water For Irrigation,Sterile [Sterile Water for Irrigation] 1,000 ml IRR ASDIRECTED PRN miSOPROStol [Cytotec] 200 mcg PO ONETIME PRN Scalp Electrode [WOMSER] Per Unit Routine Peripheral IV Insertion Adult [OM.PC] Routine Resuscitation Status Routine
[2018-08-26] MEDS ORDERED: oxyCODONE 5 MG Tab PO PRN (19:34)
[2018-08-26] MEDS ORDERED: Bisacodyl 10 MG Supp RECTAL PRN (19:34)
[2018-08-26] MEDS ORDERED: Famotidine 20 MG Tab PO PRN (19:34)
[2018-08-26] MEDS ORDERED: Ibuprofen 400 MG Tab PO PRN (19:34)
[2018-08-26] MEDS ORDERED: Witch Hazel Medicated Pads 40/Jar TOP PRN (19:34)
[2018-08-26] MEDS ORDERED: Docusate Sodium 100 MG Cap PO PRN (19:34)
[2018-08-26] MEDS ORDERED: Benzocaine/Menthol 20%-0.5% Spray 78 GM Cannister TOP PRN (19:34)
[2018-08-26] MEDS ORDERED: Acetaminophen 500 MG Tab PO PRN ×2 (19:34)
[2018-08-26] MEDS ORDERED: Lanolin 100% Cream 7 GM Tube TOP PRN (19:34)
[2018-08-26] MEDS: Ibuprofen 800 MG Tab PO PRN (21:30)
--- NOTE | 2018-08-27 00:33 | OR ---
SURGEON: Patsy Cantu M.D. DATE OF PROCEDURE: 08/26/2018 PREOPERATIVE DIAGNOSIS: A 39 and 3/7th-week intrauterine , induction of labor. POSTOPERATIVE DIAGNOSIS: A 39 and 3/7th-week intrauterine , induction of labor. PROCEDURE: Pitocin induction of labor, artificial rupture of membranes, term spontaneous vaginal delivery, repair of second-degree laceration. ANESTHESIA: Epidural. ESTIMATED BLOOD LOSS: Less than 200 mL. FINDINGS: Liveborn female. scores 8 and 9. Weight is pending at the time of dictation. Placenta spontaneous, Schultze intact, with 3 vessels. Second- degree perineal laceration repaired. Otherwise, no periurethral, vaginal sidewall, cervical or rectal lacerations. COMPLICATIONS: None known. DISPOSITION: Mother and baby are in LDR in good condition. BRIEF HISTORY: This is a 38-year-old female, G3, P2-0-0-2. She presents at 39 and 3/7th weeks' gestation for induction of labor. She was initially 3 to 4 cm dilated. She was started on Pitocin. She is group B strep negative. She received an epidural for pain control. She had artificial rupture of membranes and Pitocin was continued up to a maximum of 20 milliunits per minute, and she had category 1 heart tones throughout labor and progressed to complete. DESCRIPTION OF PROCEDURE: With the patient in dorsal lithotomy position, the patient pushed over a 15- minute time period to a 5+ station at which time the head was delivered spontaneously and atraumatically over the perineum with support with subsequent delivery of the infant's shoulders and body without any difficulty. The infant was bulb suctioned by nose and mouth and the infant was handed to the mother in the presence of the nurse attending delivery. The infant was a liveborn female, scores 8 and 9. Weight is pending at the time of dictation. After the cord had ceased to pulsate, it was doubly clamped and cut. Cord blood was collected for cord ABGs as well as routine cord blood sampling. Pitocin was initiated after delivery the infant to assist with delivery of the placenta, which was delivered spontaneously. Schultze intact with 3 vessels. Upon inspection of the pelvis and perineum, there were no periurethral, vaginal sidewall, cervical or rectal lacerations. There was a second-degree midline perineal laceration and this was repaired using a running lock suture of 3-0 Vicryl for the vaginal mucosa, deep running suture of the same for the perineum and a subcuticular suture of the same for the skin. Final sponge, needle, and instrument counts were correct. There were no known complications. Mother and baby remain in LDR in good condition. MALLORY / JOSE ARMANDO /[id number]
[2018-08-27] MEDS: Ibuprofen 800 MG Tab PO PRN ×2 (03:35→10:12)
--- NOTE | 2018-08-27 06:31 | PCM48HPAN ---
Post Anesthesia Note - EVALUATION WITHIN 48HRS OF ANESTHETIC Vital Signs in Normal Range: Yes Patient Participated in Evaluation: Yes Respiratory Function Stable: Yes Airway Patent: Yes Cardiovascular Function Stable: Yes Hydration Status Stable: Yes Pain Control Satisfactory: Yes Nausea and Vomiting Control Satisfactory: Yes Mental Status Recovered: Yes Pulse Rate: 107 Resp Rate: 16 Blood Pressure: 137/83 - COMMENTS/OBSERVATIONS Free Text/Narrative:: Denies headache. The patient has no complaints at this time. There were no apparent anesthetic complications. Discharge to primary service.
--- NOTE | 2018-08-27 06:51 | PCM.PNPP ---
- General Info Date of Service: 08/27/18 Functional Status: Reports: Pain Controlled, Tolerating Diet, Ambulating, Urinating, Other (breast feeding well. ) - Review of Systems General: Reports: No Symptoms HEENT: Reports: No Symptoms Pulmonary: Reports: No Symptoms Cardiovascular: Reports: No Symptoms Gastrointestinal: Reports: No Symptoms Genitourinary: Reports: No Symptoms Musculoskeletal: Reports: No Symptoms Skin: Reports: No Symptoms Neurological: Reports: No Symptoms Psychiatric: Reports: No Symptoms - Patient Data Vital Signs - Most Recent: Last Vital Signs Temp 36.5 C 08/27/18 04:18 Pulse 107 H 08/27/18 06:31 Resp 16 08/27/18 06:31 BP 137/83 08/27/18 06:31 Pulse Ox 97 08/27/18 04:18 Weight - Most Recent: 76.204 kg Lab Results - Last 24 Hours: Laboratory Results - last 24 hr 08/26/18 08/26/18 08/26/18 Range/Units 12:21 12:21 19:02 WBC 12.38 H (4.0-11.0) K/uL RBC 4.06 L (4.30-5.90) M/uL Hgb 11.1 L (12.0-16.0) g/dL Hct 33.5 L (36.0-46.0) % MCV 82.5 (80.0-98.0) fL MCH 27.3 (27.0-32.0) pg MCHC 33.1 (31.0-37.0) g/dL RDW Std Deviation 39.4 (28.0-62.0) fl RDW Coeff of Rhianna 13 (11.0-15.0) % Plt Count 214 (150-400) K/uL MPV 10.70 (7.40-12.00) fL Nucleated RBC % 0.0 /100WBC Nucleated RBCs # 0 K/uL Cord ABG pH (7.18-7.38) Cord ABG Base Excess (-10--2) Cord VBG pH 7.341 (7.25-7.45) Cord VBG Base Excess -5 (-10--2) Blood Type O POSITIVE Antibody Screen NEGATIVE 08/26/18 08/27/18 Range/Units 19:02 05:25 WBC (4.0-11.0) K/uL RBC (4.30-5.90) M/uL Hgb 9.7 L (12.0-16.0) g/dL Hct 29.5 L (36.0-46.0) % MCV (80.0-98.0) fL MCH (27.0-32.0) pg MCHC (31.0-37.0) g/dL RDW Std Deviation (28.0-62.0) fl RDW Coeff of Rhianna (11.0-15.0) % Plt Count (150-400) K/uL MPV (7.40-12.00) fL Nucleated RBC % /100WBC Nucleated RBCs # K/uL Cord ABG pH 7.270 (7.18-7.38) Cord ABG Base Excess -4 (-10--2) Cord VBG pH (7.25-7.45) Cord VBG Base Excess (-10--2) Blood Type Antibody Screen Med Orders - Current: Current Medications Acetaminophen (Tylenol Extra Strength) 500 mg PO Q4H PRN PRN Reason: Pain Acetaminophen (Tylenol Extra Strength) 1,000 mg PO Q4H PRN PRN Reason: Pain Last Admin: 08/26/18 22:03 Dose: 1,000 mg Benzocaine/Menthol (Dermoplast Pain Relief 20%-0.5% [place]) 78 gm TOP ASDIRECTED PRN PRN Reason: Perineal Comfort Measure Bisacodyl (Dulcolax) 10 mg RECTAL ONETIME PRN PRN Reason: Constipation Docusate Sodium (Colace) 100 mg PO BID PRN PRN Reason: Constipation Emollient Ointment (Lansinoh Hpa) 0 gm TOP ASDIRECTED PRN PRN Reason: Sore Nipples Famotidine (Pepcid) 20 mg PO BID PRN PRN Reason: Heartburn Ibuprofen (Motrin) 400 mg PO Q4H PRN PRN Reason: Pain Ibuprofen (Motrin) 800 mg PO Q6H PRN PRN Reason: Pain Last Admin: 08/27/18 03:35 Dose: 800 mg Oxycodone HCl (Oxycodone) 5 mg PO Q2H PRN PRN Reason: Pain Witch Mara (Tucks) 1 pad TOP ASDIRECTED PRN PRN Reason: comfort care Discontinued Medications Butorphanol Tartrate (Stadol) 1 mg IVPUSH Q1H PRN PRN Reason: Pain Carboprost Tromethamine (Hemabate Ds) 250 mcg IM ASDIRECTED PRN PRN Reason: Post Hemorrhage Citric Acid/Sodium Citrate (Bicitra Solution) 30 ml PO ONETIME ONE Stop: 08/26/18 18:01 Last Admin: 08/26/18 18:47 Dose: 30 ml Lactated Ringer's (Ringers, Lactated) 1,000 mls @ 150 mls/hr IV ASDIRECTED KELBY Last Admin: 08/26/18 14:48 Dose: 150 mls/hr Oxytocin/Sodium Chloride (Oxytocin 30 Unit/500 Ml-Ns) 30 unit in 500 mls @ 2 mls/hr IV TITRATE KELBY; Protocol Last Titration: 08/26/18 18:00 Dose: 18 munits/min, 18 mls/hr Oxytocin/Sodium Chloride (Oxytocin 30 Unit/500 Ml-Ns) 30 unit in 500 mls @ 500 mls/hr IV TITRATE KELBY Tranexamic Acid 1,000 mg/ (Sodium Chloride) 110 mls @ 660 mls/hr IV ONETIME PRN PRN Reason: Bleeding Ropivacaine (Naropin 0.2%) Confirm Administered Dose 100 mls @ as directed .ROUTE .STK-MED ONE Stop: 08/26/18 13:48 Lidocaine HCl (Xylocaine 1%) 50 ml INJECT ONETIME PRN PRN Reason: Laceration repair Lidocaine/Epinephrine (Lidocaine 1.5%-Epi 1:200,000) Confirm Administered Dose 5 ml IJ .STK-MED ONE Stop: 08/26/18 13:48 Methylergonovine Maleate (Methergine) 0.2 mg IM ASDIRECTED PRN PRN Reason: Post Hemorrhage Misoprostol (Cytotec) 200 mcg PO ONETIME PRN PRN Reason: Post Hemorrhage Nalbuphine HCl (Nubain) 10 mg IVPUSH Q1H PRN PRN Reason: Pain (severe 7-10) Sodium Chloride (Saline Flush) 10 ml FLUSH ASDIRECTED PRN PRN Reason: Keep Vein Open Sodium Chloride (Saline Flush) 2.5 ml FLUSH ASDIRECTED PRN PRN Reason: Keep Vein Open Sodium Chloride (Normal Saline) 10 ml IV ASDIRECTED PRN PRN Reason: IV Use Sterile Water (Sterile Water For Irrigation) 1,000 ml IRR ASDIRECTED PRN PRN Reason: delivery Last Admin: 08/26/18 19:24 Dose: 1,000 ml Terbutaline Sulfate (Brethine) 0.25 mg SUBCUT ASDIRECTED PRN PRN Reason: Tacysystole - Interaction Infant Disposition, : in Room with Family Interaction: Holding Infant Feeding: Breastfed ; Nursed Well Support Person: - Recovery Exam Fundal Level: 2 Fingerbreadths Below Umbilicus Fundal Placement: Midline Lochia Amount: Small Lochia Color: Rubra/Red - Exam General: Alert, Oriented HEENT: Pupils Equal Neck: Supple Lungs: Normal Respiratory Effort GI/Abdominal Exam: Normal Bowel Sounds, Soft, Non-Tender, No Mass Extremities: Normal Inspection, Non-Tender, No Pedal Edema Skin: Warm, Dry, Intact Neurological: No New Focal Deficit Psy/Mental Status: Alert, Normal Affect, Normal Mood - Problem List & Annotations (1) Vaginal delivery SNOMED Code(s): 666169496 Code(s): O80 - ENCOUNTER FOR FULL-TERM UNCOMPLICATED DELIVERY Status: Acute Current Visit: No - Problem List Review Problem List Initiated/Reviewed/Updated: Yes - My Orders Last 24 Hours: My Active Orders 08/26/18 12:00 Bedrest Bathroom Privileges [RC] ASDIRECTED Communication Order [RC] ASDIRECTED Communication Order [RC] ASDIRECTED May Shower [RC] ASDIRECTED Notify Provider [RC] PRN Notify Provider [RC] STAT Oxygen Therapy [RC] ASDIRECTED Up ad Liliam [RC] ASDIRECTED Vital Signs [RC] PER UNIT ROUTINE Vital Signs [RC] PER UNIT ROUTINE 08/26/18 19:34 Patient Status [ADT] Routine May Shower [RC] ASDIRECTED Up ad Liliam [RC] ASDIRECTED Vital Signs [RC] PER UNIT ROUTINE Acetaminophen [Tylenol Extra Strength] 1,000 mg PO Q4H PRN Acetaminophen [Tylenol Extra Strength] 500 mg PO Q4H PRN Benzocaine/Menthol [Dermoplast Pain Relief 20%-0.5% [place]] 78 gm TOP ASDIRECTED PRN Bisacodyl [Dulcolax] 10 mg RECTAL ONETIME PRN Docusate Sodium [Colace] 100 mg PO BID PRN Famotidine [Pepcid] 20 mg PO BID PRN Ibuprofen [Motrin] 400 mg PO Q4H PRN Ibuprofen [Motrin] 800 mg PO Q6H PRN Lanolin [Lansinoh HPA] See Dose Instructions TOP ASDIRECTED PRN Milka Terry [Tucks] 1 pad TOP ASDIRECTED PRN oxyCODONE 5 mg PO Q2H PRN Assess Lochia [WOMSER] Per Unit Routine Assess Uterine Involution [WOMSER] Per Unit Routine Peripheral IV Discontinue [OM.PC] Routine Resuscitation Status Routine 08/27/18 Breakfast Regular Diet [DIET] - Assessment Assessment:: PPD1 after , stable, minimal lochia, tolerating diet, well. She would like to go home this evening. - Plan Plan:: Continue care today, discharge when at least 24 hours . Discharge instructions reviewed.
[2018-08-27 19:44] VITALS: BP 112/65
== END 2018-08-27 09:23 | disposition home or self-care (01) | DRG 560 ==
LOC: MW.OB 11:31 → OBSVTOIN 19:02 → MW.OB 23:29
PROVIDERS: ADMIT Obstetrics & Gynecology; ATTEND Obstetrics & Gynecology
PROC: 10E0XZZ Delivery of Products of Conception, External Approach (ICD-10-PCS; principal; 2018-08-26)
PROC: 3E033VJ Introduction of Other Hormone into Peripheral Vein, Percutaneous Approach (ICD-10-PCS; 2018-08-26)
PROC: 10907ZC Drainage of Amniotic Fluid, Therapeutic from Products of Conception, Via Natural or Artificial Opening (ICD-10-PCS; 2018-08-26)
PROC: 0KQM0ZZ Repair Perineum Muscle, Open Approach (ICD-10-PCS; 2018-08-26)
DX: O69.81X0 Labor and delivery complicated by cord around neck, without compression, not applicable or unspecified (principal); O70.1 Second degree perineal laceration during delivery; J45.909 Unspecified asthma, uncomplicated; O99.52 Diseases of the respiratory system complicating childbirth; Z3A.39 39 weeks gestation of pregnancy; Z37.0 Single live birth
CPT/HCPCS: 36415; 51702; 59025; 59409; 82803; 85014; 85018; 85027; 86850; 86900; 86901; A9270-GY; J2590; J7120

== ENCOUNTER 2020-07-31 11:55 | Emergency (ER) | payer BC ==
[2020-07-31] MEDS ORDERED: Sodium Chloride 0.9% 10 ML Syringe FLUSH PRN (12:11)
[2020-07-31] MEDS ORDERED: Sodium Chloride 0.9% 2.5 ML Syringe FLUSH PRN (12:11)
[2020-07-31] MEDS ORDERED: Dexamethasone 10 MG/ML SDV IVPUSH ONE (12:11)
[2020-07-31] MEDS: diphenhydrAMINE 50 MG/ML SDV IVPUSH ONE ×2 (12:15→12:16)
[2020-07-31 12:42] LABS: BLOOD UREA NITROGEN,BUN 14 mg/dL (7.0-18.0); CARBON DIOXIDE,CO2 28.6 mmol/L (21.0-32.0); CHLORIDE,CL 102 mmol/L (98-107); GLUCOSE RANDOM 91 mg/dL (74-106); POTASSIUM,K 3.8 mmol/L (3.5-5.1); SODIUM,NA 140 mmol/L (136-145)
--- NOTE | 2020-07-31 12:56 | EDM.PDOC ---
ED HPI GENERAL MEDICAL PROBLEM - General Chief Complaint: Allergic Reaction Stated Complaint: ALERGIC REACTION Time Seen by Provider: 07/31/20 12:07 - History of Present Illness INITIAL COMMENTS - FREE TEXT/NARRATIVE: History of present illness: [] The patient's lip began to swell 1115 this morning. She has had a past history of angioedema and was admitted for more than 24 hours. At that time she had some airway involvement but was not intubated. Sisters had a serious facial and airway edema episode in the past also. The sister was admitted also. She also was not intubated. Patient has no stridor or trouble breathing at this time but does feel like there is some tightness around her throat. She has no known exposure to any allergens and she is not on any blood pressure medicines. Review of systems: As per history of present illness and below otherwise all systems reviewed and negative. Past medical history: As per history of present illness and as reviewed below otherwise noncontributory. Surgical history: As per history of present illness and as reviewed below otherwise noncontributory. Social history: No reported history of drug or alcohol abuse. Family history: As per history of present illness and as reviewed below otherwise noncontributory. Physical exam: Constitutional - well developed, well-nourished and in no acute distress HEENT -there is edema of the upper lip especially on the left side of the upper lip under the nose. Normocephalic, no evidence of trauma - external nose and mouth normal - no mass in neck and no JVD - mucosae moist -no stridor, normal voice, handling her secretions. EYES - full EOM, PERRL, no icterus - no evidence of inflammation, injection, or drainage Respiratory - no respiratory distress, equal bilateral expansion, lungs clear to auscultation and no abnormal lung sounds Cardiovascular - Regular Rhythm with S1 and S2 appreciated and no murmur, gallop or rub. GI - abdomen soft without distension or organomegaly - normal bowel sounds - no guard or rebound Musculoskeletal no gross deformity of long bones or joints - no tenderness, swelling or edema Neurologic - Alert and oriented times four - CN II-XII grossly intact - motor sensory and coordination symmetrically normal Psychiatric - appropriate mood and affect with normal thought content Hematologic - No petechiae or purpura - mucosa appropriate color and sclera not pale - normal nail bed color and refill Integument - no rash or evidence of trauma - normal turgor Diagnostics: [] Therapeutics: [] Impression: [] Plan: [] Definitive disposition and diagnosis as appropriate pending reevaluation and review of above. - Related Data Allergies Allergy/AdvReac Type Severity Reaction Status Date / Time gluten Allergy Abdominal Verified 07/31/20 12:06 Pain frank Allergy Hives Uncoded 07/21/18 03:48 Home Meds: Home Meds Albuterol Sulfate [Proair Hfa] 1 - 2 puff INH ASDIRECTED PRN 08/21/16 [History] EPINEPHrine [Epipen 2-Misael] 0.3 mg IJ ONETIME PRN #1 auto.injct 07/31/20 [Rx] methylPREDNISolone [Medrol Dose Pack] 4 mg PO DAILY #21 tab 07/31/20 [Rx] Past Medical History HEENT History: Reports: Allergic Rhinitis, Other (See Below) Other HEENT History: wears glasses/contacts Cardiovascular History: Reports: None Respiratory History: Reports: Asthma Gastrointestinal History: Reports: GERD, Other (See Below) Other Gastrointestinal History: hx gastric ulcer, h/o elevated LFT's, abdominal cramps, brbpr Genitourinary History: Reports: None [employer] History: Reports: Musculoskeletal History: Reports: Arthritis Neurological History: Reports: Other (See Below) Psychiatric History: Reports: Anxiety, Depression Endocrine/Metabolic History: Reports: None Hematologic History: Reports: None Immunologic History: Reports: None Oncologic (Cancer) History: Reports: None Dermatologic History: Reports: Psoriasis - Infectious Disease History Infectious Disease History: Reports: Chicken Pox - Past Surgical History Head Surgeries/Procedures: Reports: None HEENT Surgical History: Reports: Tonsillectomy Cardiovascular Surgical History: Reports: None Respiratory Surgical History: Reports: None GI Surgical History: Reports: EGD Female Surgical History: Reports: Breast Reduction Endocrine Surgical History: Reports: None Neurological Surgical History: Reports: None Musculoskeletal Surgical History: Reports: None Dermatological Surgical History: Reports: None Social & Family History - Family History Family Medical History: No Pertinent Family History - Tobacco Use Tobacco Use Status *Q: Never Tobacco User Second Hand Smoke Exposure: No - Caffeine Use Caffeine Use: Reports: None Other Caffeine Use: daily - Recreational Drug Use Recreational Drug Use: No ED ROS ALLERGIC REACTION - Review of Systems Review Of Systems: Comprehensive ROS is negative, except as noted in HPI. ED EXAM GENERAL NO PERIP PULSE - Physical Exam Exam: See Below Course - Vital Signs Text/Narrative:: 12:55 PM the patient feels like she is little better. To me objectively there is no difference in the swelling but there is no deterioration in her voice is still normal and she is handling her secretions. She has no respiratory effort increased. If she does not change a plan to watch her a little longer. If she improves I will send her home. 1315 the swelling is down according her and even I can tell the difference. She is improved. Last Recorded V/S: Last Vital Signs Temp 36.4 C 07/31/20 12:07 Pulse 84 07/31/20 12:30 Resp 16 07/31/20 12:30 BP 110/71 07/31/20 12:30 Pulse Ox 95 07/31/20 12:30 - Orders/Labs/Meds Orders: Active Orders 24 hr Category Date Time Status Sodium Chloride 0.9% [Saline Flush] Med 07/31/20 12:11 Active 10 ml FLUSH ASDIRECTED PRN Sodium Chloride 0.9% [Saline Flush] Med 07/31/20 12:11 Active 2.5 ml FLUSH ASDIRECTED PRN Saline Lock Insert [OM.PC] Stat Oth 07/31/20 12:11 Ordered Medication Orders Sodium Chloride (Sodium Chloride 0.9% 10 Ml Syringe) 10 ml FLUSH ASDIRECTED PRN PRN Reason: Keep Vein Open Last Admin: 07/31/20 12:15 Dose: 10 ml Documented by: JACIEL Sodium Chloride (Sodium Chloride 0.9% 2.5 Ml Syringe) 2.5 ml FLUSH ASDIRECTED PRN PRN Reason: Keep Vein Open Last Admin: 07/31/20 12:15 Dose: 2.5 ml Documented by: JACIEL Labs: Laboratory Tests 07/31/20 07/31/20 07/31/20 Range/Units 12:15 12:15 12:15 WBC 5.13 (4.0-11.0) K/uL RBC 5.15 (4.30-5.90) M/uL Hgb 15.4 (12.0-16.0) g/dL Hct 44.6 (36.0-46.0) % MCV 86.6 (80.0-98.0) fL MCH 29.9 (27.0-32.0) pg MCHC 34.5 (31.0-37.0) g/dL RDW Std Deviation 40.4 (28.0-62.0) fl RDW Coeff of Rhianna 13 (11.0-15.0) % Plt Count 239 (150-400) K/uL MPV 9.80 (7.40-12.00) fL Neut % (Auto) 44.0 L (48.0-80.0) % Lymph % (Auto) 43.1 H (16.0-40.0) % Wilkes % (Auto) 6.6 (0.0-15.0) % Eos % (Auto) 5.5 (0.0-7.0) % Baso % (Auto) 0.8 (0.0-1.5) % Neut # (Auto) 2.3 (1.4-5.7) K/uL Lymph # (Auto) 2.2 (0.6-2.4) K/uL Wilkes # (Auto) 0.3 (0.0-0.8) K/uL Eos # (Auto) 0.3 (0.0-0.7) K/uL Baso # (Auto) 0.0 (0.0-0.1) K/uL Nucleated RBC % 0.0 /100WBC Nucleated RBCs # 0 K/uL Sodium 140 (136-145) mmol/L Potassium 3.8 (3.5-5.1) mmol/L Chloride 102 (98-107) mmol/L Carbon Dioxide 28.6 (21.0-32.0) mmol/L BUN 14 (7.0-18.0) mg/dL Creatinine 0.9 (0.6-1.0) mg/dL Est Cr Clr Drug Dosing 76.26 mL/min Estimated GFR (MDRD) > 60.0 ml/min Glucose 91 (74-106) mg/dL Calcium 8.6 (8.5-10.1) mg/dL Total Bilirubin 1.4 H (0.2-1.0) mg/dL AST 18 (15-37) IU/L ALT 21 (14-63) IU/L Alkaline Phosphatase 74 (46-116) U/L Total Protein 8.1 (6.4-8.2) g/dL Albumin 4.0 (3.4-5.0) g/dL Globulin 4.1 H (2.6-4.0) g/dL Albumin/Globulin Ratio 1.0 (0.9-1.6) HCG, Qual NEGATIVE (NEG) Meds: Medications Generic Name Dose Route Start Last Admin Trade Name Freq PRN Reason Stop Dose Admin Sodium Chloride 10 ml 07/31/20 12:11 07/31/20 12:15 Sodium Chloride 0.9% 10 Ml Syringe FLUSH 10 ml ASDIRECTED PRN Administration Keep Vein Open Sodium Chloride 2.5 ml 07/31/20 12:11 07/31/20 12:15 Sodium Chloride 0.9% 2.5 Ml Syringe FLUSH 2.5 ml ASDIRECTED PRN Administration Keep Vein Open Discontinued Medications Generic Name Dose Route Start Last Admin Trade Name Freq PRN Reason Stop Dose Admin Dexamethasone 10 mg 07/31/20 12:11 07/31/20 12:16 Dexamethasone 10 Mg/Ml Sdv IVPUSH 07/31/20 12:12 10 mg ONETIME ONE Administration Diphenhydramine HCl 50 mg 07/31/20 12:11 07/31/20 12:16 Diphenhydramine 50 Mg/Ml Sdv IVPUSH 07/31/20 12:12 Not Given ONETIME ONE Departure - Departure Time of Disposition: 13:15 Disposition: Home, Self-Care 01 Condition: Good Clinical Impression: Angioedema - Discharge Information Prescriptions: EPINEPHrine [Epipen 2-Misael] 0.3 mg IJ ONETIME PRN #1 auto.injct PRN Reason: Allergies methylPREDNISolone [Medrol Dose Pack] 4 mg PO DAILY #21 tab Instructions: Angioedema, [id number] Referrals: Payton Morales MD [Primary Care Provider] - Forms: ED Department Discharge Additional Instructions: [facility] - Primary Care [address] [place] [id number] [id number] The following information is given to patients seen in the emergency department who are being discharged to home. This information is to outline your options for follow-up care. We provide all patients seen in our emergency department with a follow-up referral. The need for follow-up, as well as the timing and circumstances, are variable depending upon the specifics of your emergency department visit. If you don't have a primary care physician on staff, we will provide you with a referral. We always advise you to contact your personal physician following an emergency department visit to inform them of the circumstance of the visit and for follow-up with them and/or the need for any referrals to a consulting specialist. The emergency department will also refer you to a specialist when appropriate. This referral assures that you have the opportunity for follow-up care with a specialist. All of these measure are taken in an effort to provide you with optimal care, which includes your follow-up. Under all circumstances we always encourage you to contact your private physician who remains a resource for coordinating your care. When calling for follow-up care, please make the office aware that this follow-up is from your recent emergency room visit. If for any reason you are refused follow-up, please contact the [facility] Emergency Department at and asked to speak to the emergency department charge nurse. Sepsis Event Note (ED) - Evaluation Sepsis Screening Result: No Definite Risk - Focused Exam Vital Signs: Vital Signs Temp Pulse Resp BP Pulse Ox 07/31/20 12:30 84 16 110/71 95 07/31/20 12:07 36.4 C 99 17 153/72 H 98 - My Orders Last 24 Hours: My Active Orders 07/31/20 12:11 Sodium Chloride 0.9% [Saline Flush] 10 ml FLUSH ASDIRECTED PRN Sodium Chloride 0.9% [Saline Flush] 2.5 ml FLUSH ASDIRECTED PRN Saline Lock Insert [OM.PC] Stat - Assessment/Plan Last 24 Hours: My Active Orders 07/31/20 12:11 Sodium Chloride 0.9% [Saline Flush] 10 ml FLUSH ASDIRECTED PRN Sodium Chloride 0.9% [Saline Flush] 2.5 ml FLUSH ASDIRECTED PRN Saline Lock Insert [OM.PC] Stat
[2020-07-31 14:06] VITALS: BP 109/77; PULSE 85
== END 2020-07-31 13:28 | disposition home or self-care (01) ==
LOC: MW.ED 11:55
DX: T78.3XXA Angioneurotic edema, initial encounter (principal)
CPT/HCPCS: 36415; 80053; 84703; 85025; 96374; 99284; J1100; 99283; J1200

== ENCOUNTER 2022-07-08 08:46 | Emergency (ER) | payer BC ==
[2022-07-08 09:02] VITALS: BP 123/81; PULSE 98
[2022-07-08] MEDS ORDERED: Azithromycin 250 MG Tab PO ONE (09:04)
== END 2022-07-08 09:12 | disposition home or self-care (01) ==
LOC: MW.ED 08:46
DX: J02.0 Streptococcal pharyngitis (principal); J45.909 Unspecified asthma, uncomplicated; Z91.018 Allergy to other foods
CPT/HCPCS: 99283; A9270; 99282

== ENCOUNTER 2023-06-14 00:20 | Inpatient (IN) | payer BC ==
[2023-06-14] MEDS ORDERED: Nalbuphine 10 MG/0.5 ML Syringe IVPUSH PRN (00:27)
[2023-06-14] MEDS ORDERED: Sodium Chloride 0.9% 10 ML Syringe FLUSH PRN (00:27)
[2023-06-14] MEDS ORDERED: Misoprostol 200 MCG Tab PO PRN (00:27)
[2023-06-14] MEDS ORDERED: Terbutaline 1 MG/ML SDV SUBCUT PRN (00:27)
[2023-06-14] MEDS ORDERED: Methylergonovine 0.2 MG/1 ML Amp IM PRN ×2 (00:27→14:56)
[2023-06-14] MEDS ORDERED: Water For Irrigation,Sterile 1,000 ML Container IRR PRN (00:27)
[2023-06-14] MEDS ORDERED: Ondansetron 4 MG/2 ML SDV IVPUSH PRN (00:27)
[2023-06-14] MEDS ORDERED: Carboprost Tromethamine 250 MCG/1 mL Vial IM PRN (00:27)
[2023-06-14] MEDS ORDERED: Sodium Chloride 0.9% 2.5 ML Syringe FLUSH PRN (00:27)
[2023-06-14] MEDS ORDERED: Tranexamic Acid IN NACL,ISO-OS 1,000 MG in Premix Bag 1 BAG IV PRN ×2 (00:27→14:56)
[2023-06-14] MEDS ORDERED: Lidocaine 1% 50 ML MDV INJECT PRN (00:27)
[2023-06-14] MEDS ORDERED: Sodium Chloride 0.9% 20 ML SDV IV PRN (00:27)
[2023-06-14] MEDS ORDERED: Oxytocin/0.9 % Sodium Chloride 30 UNIT/500 ML BAG IV SCH (00:30)
[2023-06-14 01:27] LABS: HEMOGLOBIN 12.3 g/dL (12.0-16.0); MEAN CORPUSCULAR HEMOGLOBIN 28.5 pg (28.0-32.0); MEAN CORPUSCULAR HGB CONC 34.2 g/dL (32.0-36.0); MEAN CORPUSCULAR VOLUME 83.3 fL (83.0-99.0); MEAN PLATELET VOLUME 10.4 fL (9.4-12.3); PLATELET COUNT,PLT 240 K/uL (150-400); RED BLOOD CELL COUNT 4.32 M/uL (4.10-5.30); WHITE BLOOD CELL COUNT,WBC 11.51 K/uL (3.9-11.3)
[2023-06-14] MEDS: Lactated Ringers 1,000 ML IV SCH (01:35)
[2023-06-14] MEDS: Ampicillin 2 GM in Sodium Chloride 0.9% 100 ML IV ONE (01:35)
[2023-06-14] MEDS: Misoprostol 25 MCG (1/4 of 100 MCG) Tab VAG PRN ×2 (01:45→07:48)
[2023-06-14] MEDS: Ampicillin 1 GM in Sodium Chloride 0.9% 50 ML IV SCH (05:45)
[2023-06-14] MEDS ORDERED: ePHEDrine 50 MG/ML SDV IVPUSH PRN ×2 (07:18)
[2023-06-14] MEDS ORDERED: Phenylephrine HCl 0.5 MG/5 ML AMP IVPUSH PRN (07:18)
[2023-06-14] MEDS: Ropivacaine HCl/PF 400 MG in Premix Bag 1 BAG EPIDUR SCH (11:30)
[2023-06-14] MEDS ORDERED: dexmedeTOMIDine HCl 200 MCG/2 ML SDV ONE (11:39)
[2023-06-14] MEDS: Oxytocin/0.9 % Sodium Chloride 30 UNIT/500 ML BAG IV SCH (11:55)
[2023-06-14] MEDS ORDERED: Lanolin 100% Cream 7 GM Tube TOP PRN (14:56)
[2023-06-14 15:20] LABS: PH,UMBILICAL ARTERIAL 7.422 (7.18-7.38); PH,UMBILICAL VENOUS 7.36 (7.25-7.45)
[2023-06-14] MEDS: Benzocaine/Menthol 20%-0.5% Spray 78 GM Cannister TOP PRN (15:40)
[2023-06-14] MEDS: Witch Hazel Medicated Pads 40/Jar TOP PRN (15:41)
[2023-06-14] MEDS: Acetaminophen 500 MG Tab PO PRN (22:27)
[2023-06-15 06:25] LABS: HEMATOCRIT 31.8 % (37.0-47.0); HEMOGLOBIN 10.9 g/dL (12.0-16.0)
[2023-06-15] MEDS: Docusate Sodium 100 MG Cap PO PRN (08:13)
[2023-06-15] MEDS: Ibuprofen 800 MG Tab PO PRN (08:13)
[2023-06-15 19:06] VITALS: BP 103/66; PULSE 84
== END 2023-06-15 17:29 | disposition home or self-care (01) | DRG 560 ==
LOC: MW.OBCHECK 00:20 → MW.OB 00:22 → MW.OBCHECK 14:40 → OBSVTOIN 14:41 → MW.OB 14:41
PROVIDERS: ADMIT Obstetrics & Gynecology; ATTEND Obstetrics & Gynecology
PROC: 10E0XZZ Delivery of Products of Conception, External Approach (ICD-10-PCS; principal; 2023-06-14)
PROC: 3E033VJ Introduction of Other Hormone into Peripheral Vein, Percutaneous Approach (ICD-10-PCS; 2023-06-14)
PROC: 3E0P7VZ Introduction of Hormone into Female Reproductive, Via Natural or Artificial Opening (ICD-10-PCS; 2023-06-14)
PROC: 0KQM0ZZ Repair Perineum Muscle, Open Approach (ICD-10-PCS; 2023-06-14)
PROC: 3E0R3BZ Introduction of Anesthetic Agent into Spinal Canal, Percutaneous Approach (ICD-10-PCS; 2023-06-14)
PROC: 00HU33Z Insertion of Infusion Device into Spinal Canal, Percutaneous Approach (ICD-10-PCS; 2023-06-14)
PROC: 10907ZC Drainage of Amniotic Fluid, Therapeutic from Products of Conception, Via Natural or Artificial Opening (ICD-10-PCS; 2023-06-14)
DX: O36.5930 Maternal care for other known or suspected poor fetal growth, third trimester, not applicable or unspecified (principal); Z37.0 Single live birth; O99.824 Streptococcus B carrier state complicating childbirth; O69.81X0 Labor and delivery complicated by cord around neck, without compression, not applicable or unspecified; O70.1 Second degree perineal laceration during delivery; Z3A.38 38 weeks gestation of pregnancy; Z90.89 Acquired absence of other organs
CPT/HCPCS: 36415; 51702; 59025; 59409; 82803; 85014; 85018; 85027; 86592; 86850; 86900; 86901; A9270-GY; J0290; J2590; J2795; J3490; J7120

== ENCOUNTER 2025-01-02 15:07 | Emergency (ER) | payer BC ==
[2025-01-02] MEDS: EPINEPHrine 1 MG/ML SDV IM ONE (15:12)
[2025-01-02] MEDS: methylPREDNISolone Sodium Succinate 125 MG/2 ML SDV IVPUSH ONE (15:34)
[2025-01-02 17:54] VITALS: BP 125/88; PULSE 90
== END 2025-01-02 17:54 | disposition home or self-care (01) ==
LOC: MW.ED 15:07
DX: T50.995A Adverse effect of other drugs, medicaments and biological substances, initial encounter (principal); J45.909 Unspecified asthma, uncomplicated; Z88.8 Allergy status to other drugs, medicaments and biological substances; Z79.899 Other long term (current) drug therapy
CPT/HCPCS: 96372; 96374; 96375; 99284; J0169; J1308; J2919